=== PATIENT | female | born 1955 | race Caucasian/White ===

== ENCOUNTER 2017-08-05 15:50 | Emergency (ER) | payer BC ==
[2017-08-05 15:55] VITALS: TEMP 98; BMI 26.9
--- NOTE | 2017-08-05 15:56 | PDOC ---
Rapid Medical Evaluation Time Seen by Provider: 08/05/17 15:52 Medical Evaluation: Allergies Allergy/AdvReac Type Severity Reaction Status Date / Time No Known Allergies Allergy Verified 05/22/12 13:06 08/05/17 15:52 I have performed a brief in-person evaluation of this patient. The patient presents with a chief complaint of: generalized weakness 18 hours ago lasting approximately 5 hours. Now Asymptomatic. Pertinent physical exam findings: No focal deficits. VSS. I have ordered the following: nothing The patient will proceed to the ED for further evaluation. Discharge Disposition - Diagnosis Weakness - Referrals - Patient Instructions - Post Discharge Activity
[2017-08-05 16:30] LABS: BASO % 0.8 % (0-2.0); EOS % 2.9 % (0-4.5); HEMATOCRIT 39.9 % (32.4-45.2); HEMOGLOBIN 13.5 GM/dL (10.7-15.3); LYMPH % 29.6 % (8-40); MCH 32.6 pg (25.7-33.7); MCHC 33.7 g/dl (32.0-36.0); MEAN CELL VOLUME 96.7 fl (80-96); MEAN PLT VOLUME 8.6 fl (7.5-11.1); MONO % 6.6 % (3.8-10.2); NEUT % 60.1 % (42.8-82.8); PLATELET COUNT 249 K/MM3 (134-434); RBC 4.13 M/mm3 (3.60-5.2); RDW 14.7 % (11.6-15.6); WHITE BLOOD COUNT 7.7 K/mm3 (4.0-10.0)
[2017-08-05 16:39] LABS: INR 1.02 (0.82-1.09); PROTHROMBIN TIME (PATIENT) 11.5 SEC (9.7-13.0)
--- NOTE | 2017-08-05 16:53 | PDOC ---
History of Present Illness - General History Source: Patient Exam Limitations: No Limitations - History of Present Illness Initial Comments: 08/05/17 17:40 The patient is a 62 year old female with past medical history of GERD presents to the emergency department with generalized malaise since last night. The patient report around 8:00-9:00 PM last night the patient experienced a sudden onset of body heaviness which lasted for about a hour to 2 hours. The patient reports lower extremity weakness, sensation of her generalized heaviness, no relief with a baby aspirin. The patient reports a similar incident Apr 2017, right sided weakness, reports getting an EKG, carotid and an audio (because of vertigo) exam done and states the results were normal, the symptoms resolved on its own. The patient reports both times she has alcohol the nights prior. The patient reports bilateral ankle water retention for the past 7 seven months, which isnt a current issue. Denies any change or blurred vision. Denies any slurred vision, tingling or loss of sensation. Denies chest pain, SOB, or wheezing. Allergies: NKDA PCP: Dr. Tha Addison Social history: Patient reports occasional use of alcohol. Denies history of smoking or recreational drug use. <Jordana Burrows - Last Filed: 08/05/17 17:41> <Roxy Lau - Last Filed: 08/05/17 23:59> - General Chief Complaint: CVA/TIA Stated Complaint: BODYACHES, NUMBNESS Time Seen by Provider: 08/05/17 15:52 Past History <Jordana Burrows - Last Filed: 08/05/17 17:41> - Past Medical History COPD: No GI Disorders: Yes (gerd) - Surgical History Cholecystectomy: Yes - Suicide/Smoking/Psychosocial Hx Smoking Status: No Smoking History: Never smoked Have you smoked in the past 12 months: No Number of Cigarettes Smoked Daily: 0 Information on smoking cessation initiated: No Hx Alcohol Use: No Drug/Substance Use Hx: No Substance Use Type: None <Roxy Lau - Last Filed: 08/05/17 23:59> - Past Medical History Allergies/Adverse Reactions: Allergies Allergy/AdvReac Type Severity Reaction Status Date / Time No Known Allergies Allergy Verified 08/05/17 15:55 Home Medications: Ambulatory Orders Zolpidem Tartrate [Ambien] 5 mg PO 05/22/12 Review of Systems - Review of Systems Able to Perform ROS?: Yes Comments:: 08/05/17 17:39 CONSTITUTIONAL: (+)generalized malaise. Absent: fever, no chills, no fatigue EYES: Absent: visual changes ENT: Absent: ear pain, no sore throat CARDIOVASCULAR: Absent: chest pain, no palpitations RESPIRATORY: Absent: cough, no SOB GI: Absent: abdominal pain, no nausea, no vomiting, no constipation, no diarrhea GENITOURINARY: Absent: dysuria, no frequency, no hematuria MUSKULOSKELETAL: Absent: back pain, no arthralgia, no myalgia SKIN: Absent: rash NEURO: Absent: headache <Jordana Burrows - Last Filed: 08/05/17 17:41> *Physical Exam - Vital Signs Last Vital Signs Temp Pulse Resp BP Pulse Ox 98.0 F 72 16 147/96 100 08/05/17 15:53 08/05/17 15:53 08/05/17 15:53 08/05/17 15:53 08/05/17 15:53 - Physical Exam Comments: 08/05/17 17:41 GENERAL: Well-appearing, well-nourished. No apparent distress. HEENT: Normocephalic, atraumatic. PERRL, EOM intact. CARDIOVASCULAR: No bruit Normal S1, S2. Regular rate and rhythm. PULMONARY: Clear to auscultation bilaterally. ABDOMEN: Soft, non-distended, non-tender. EXTREMITIES: Normal ROM in all four extremities. No gross deformities. SKIN: Warm, dry. No rash NEUROLOGICAL: No focal neurological deficits. 08/05/17 17:42 <Jordana Burrows - Last Filed: 08/05/17 17:41> - Vital Signs Last Vital Signs Temp Pulse Resp BP Pulse Ox 98.0 F 72 16 147/96 100 08/05/17 15:53 08/05/17 15:53 08/05/17 15:53 08/05/17 15:53 08/05/17 15:53 <Roxy Lau - Last Filed: 08/05/17 23:59> ED Treatment Course - LABORATORY CBC & Chemistry Diagram: 08/05/17 16:16 08/05/17 16:16 - ADDITIONAL ORDERS Additional order review: Laboratory Results 0508/05/17 08/05/17 16:16 16:16 16:00 PT with INR 11.50 INR 1.02 Sodium 141 Potassium 4.1 Chloride 107 Carbon Dioxide 29 Anion Gap 5 L BUN 17 Creatinine 0.8 Creat Clearance w eGFR > 60 Random Glucose 102 Calcium 8.7 Total Bilirubin 0.2 AST 16 ALT 32 Alkaline Phosphatase 86 Troponin I < 0.02 Total Protein 7.0 Albumin 3.2 L 08/05/17 16:16 RBC 4.13 MCV 96.7 H MCHC 33.7 RDW 14.7 MPV 8.6 Neutrophils % 60.1 Lymphocytes % 29.6 Monocytes % 6.6 Eosinophils % 2.9 Basophils % 0.8 <Jordana Burrows - Last Filed: 08/05/17 17:41> - LABORATORY CBC & Chemistry Diagram: 08/05/17 16:16 08/05/17 16:16 - ADDITIONAL ORDERS Additional order review: Laboratory Results 08/05/17 16:16 PT with INR 11.50 INR 1.02 08/05/17 16:16 RBC 4.13 MCV 96.7 H MCHC 33.7 RDW 14.7 MPV 8.6 Neutrophils % 60.1 Lymphocytes % 29.6 Monocytes % 6.6 Eosinophils % 2.9 Basophils % 0.8 <Roxy Lau - Last Filed: 08/05/17 23:59> Medical Decision Making - Medical Decision Making 08/05/17 23:58 61-year-old woman came in because she had felt weak for 5 hours. She did admit to having had alcohol the night before and also she is on Ambien. EKG is normal sinus rhythm without evidence of ischemia. Troponin is negative. Chemistries are essentially unremarkable. Patient had no focal neural deficits, Impression fatigue due to Ambien and alcohol use <Roxy Lau - Last Filed: 08/05/17 23:59> *DC/Admit/Observation/Transfer <Jordana Burrows - Last Filed: 08/05/17 17:41> <Roxy Lau - Last Filed: 08/05/17 23:59> Diagnosis at time of Disposition: Weakness, Malaise - Discharge Dispostion Disposition: HOME Condition at time of disposition: Stable - Referrals Referrals: Tha Addison MD [Primary Care Provider] - - Patient Instructions Printed Discharge Instructions: DI for Fatigue Additional Instructions: PLEASE FOLLOW UP WITH YOUR REGULAR PHYSICIAN - Post Discharge Activity
[2017-08-05 17:03] LABS: ALBUMIN 3.2 g/dl (3.4-5.0); ANION GAP 5 (8-16); BLOOD UREA NITROGEN 17 mg/dL (7-18); CALCIUM 8.7 mg/dL (8.5-10.1); CHLORIDE 107 mmol/L (98-107); CO2 29 mmol/L (21-32); CREATININE 0.8 mg/dL (0.55-1.02); GLUCOSE,RANDOM 102 mg/dL (74-106); POTASSIUM 4.1 mmol/L (3.5-5.1); SGOT/AST 16 U/L (15-37); SGPT/ALT 32 U/L (12-78); SODIUM 141 mmol/L (136-145)
[2017-08-05 17:05] LABS: ALK PHOS 86 U/L (45-117); BILIRUBIN,TOTAL 0.2 mg/dL (0.2-1.0)
[2017-08-05 17:36] LABS: URINE APPEARANCE SLCLOUDY; URINE BILIRUBIN NEGATIVE (<2.0 mg/dL); URINE COLOR LTYELLOW; URINE GLUCOSE (UA) NEGATIVE (NEGATIVE); URINE KETONE NEGATIVE (NEGATIVE); URINE LEUK ESTERASE NEGATIVE (NEGATIVE); URINE NITRITE NEGATIVE (NEGATIVE); URINE PROTEIN NEGATIVE (NEGATIVE); URINE UROBILINOGEN NEGATIVE mg/dL (0.2-1.0)
[2017-08-05 18:56] VITALS: BP 140/86; PULSE 78
--- NOTE | 2017-08-06 11:55 | EKG ---
Test Reason : Blood Pressure : / mmHG Vent. Rate : 069 BPM Atrial Rate : 069 BPM P-R Int : 130 ms QRS Dur : 078 ms QT Int : 372 ms P-R-T Axes : 022 046 045 degrees QTc Int : 398 ms NORMAL SINUS RHYTHM NORMAL ECG WHEN COMPARED WITH ECG OF 18-DEC-2005 16:40, NO SIGNIFICANT CHANGE WAS FOUND Confirmed by MD YRN, MIGUEL ([id number]) on 08/06/2017 11:55:14 AM Referred By: Confirmed By:MIGUEL POOL MD
== END 2017-08-05 18:56 | disposition home or self-care (01) ==
LOC: JER 15:50
DX: R53.1 Weakness (principal)
CPT/HCPCS: 36415; 80053; 81003; 84484; 85025; 85610; 87086; 93005; 93010; 99281-25